=== PATIENT | female | born 1990 | race Caucasian/White ===

== ENCOUNTER → 2022-01-03 | Outpatient (CLI) | payer OTHER ==
[~2022-01-03] MED LIST: PRENATAL CAPLE1 EAC1 PO
== END | disposition home or self-care (01) ==
LOC: OBS/DEL 14:13 → LDR 01-06 06:25
PROVIDERS: ATTEND Specialist
DX: O41.03X0 Oligohydramnios, third trimester, not applicable or unspecified (principal); O36.5930 Maternal care for other known or suspected poor fetal growth, third trimester, not applicable or unspecified; Z3A.36 36 weeks gestation of pregnancy